=== PATIENT | female | born 1995 | race Caucasian/White ===

== ENCOUNTER 2017-09-12 17:02 | Emergency (ER) | payer OTHER ==
[~2017-09-12] VITALS: Ht 162.6 cm; Wt 54.4 kg
[2017-09-12] MEDS ORDERED: CLINDAMYCIN HCL 300 MG CAPSULE ONE (17:42)
[2017-09-12] MEDS ORDERED: CLINDAMYCIN HCL 150 MG CAPSULE PO ONE (17:45)
--- NOTE | 2017-09-12 17:49 | NUR ---
PATIENT WAS SEEN BY MD FOR C/O SKIN ISSUE ON BUTTOCKS. I WAS IN THE ROOM WITH DR GARCIA FOR EVALUATION. DC ,RX AND FOLLOW UP INSTRUCTIONS GIVEN AND EXPLAINED TO PATIENT WHO STATES SHE UNDERSTANDS ALL INSTRUCTIONS.
== END 2017-09-12 17:52 | disposition home or self-care (01) ==
LOC: ER 17:02
DX: B95.8 Unspecified staphylococcus as the cause of diseases classified elsewhere (principal); F17.210 Nicotine dependence, cigarettes, uncomplicated; F12.10 Cannabis abuse, uncomplicated; F11.10 Opioid abuse, uncomplicated; Z88.1 Allergy status to other antibiotic agents; Z88.8 Allergy status to other drugs, medicaments and biological substances
CPT/HCPCS: 99282; A4663